=== PATIENT | female | born 1950 | race Caucasian/White ===

== ENCOUNTER 2022-03-02 23:39 | Inpatient (IN) | payer MEDICARE, OTHER ==
[~2022-03-02] VITALS: Ht 167.6 cm; Wt 81.7 kg
[2022-03-03] MEDS ORDERED: LEVSOD75 PO (00:30)
[2022-03-03 01:17] LABS: Anti-Xa UFH, PHA Monitoring 0.31 IU/mL; Prothrombin Time Results 10.5 Sec (9.7-11.5)
[2022-03-03 01:27] LABS: CHOL/HDL RATIO 3.2; Cholesterol 150 mg/dL (50-200); Free Thyroxine 1.03 ng/dL (0.70-1.60); HDL Cholesterol 47 mg/dL (>39); LDL/HDL RATIO 1.5; Low Density Lipoprotein Chol 71 mg/dL (0-110); Thyroid Stimulating Hormone 0.521 uIU/mL (0.360-4.800); Triglycerides 158 mg/dL (30-160); Very Low Density Lipoprot Chol 31 mg/dL (6-32)
--- NOTE | 2022-03-03 01:29 | NUR ---
PATIENT ARRIVED TO ROOM 301 VIA EMS FROM [facility] AT 2311. SHE IS ALERT AND ORIENTED X4. ABLE TO SELF TRANSFER AND AMBULATE WITH MINIMAL ASSISTANCE.
[2022-03-03 04:58] LABS: BASOPHILS ABSOLUTE AUTO 0.07 K/mm3 (0.00-0.23); BASOPHILS PERCENT AUTO 1 % (0-2); EOSINOPHILS ABSOLUTE AUTO 0.05 K/mm3 (0.00-0.68); EOSINOPHILS PERCENT AUTO 1 % (0-6); Hematocrit 42.8 % (33.0-51.0); Hemoglobin 13.8 g/dL (11.5-16.0); IMMATURE GRAN ABSOLUTE AUTO 0.09 K/mm3 (0.00-0.10); IMMATURE GRAN PERCENT AUTO 1 % (0-1); LYMPHOCYTES ABSOLUTE AUTO 2.33 K/mm3 (0.84-5.20); LYMPHOCYTES PERCENT AUTO 29 % (21-46); MONOCYTES ABSOLUTE AUTO 0.57 K/mm3 (0.16-1.47); MONOCYTES PERCENT AUTO 7 % (4-13); Mean Corpuscular HGB 30.2 pg (26.0-34.0); Mean Corpuscular HGB Conc 32.2 g/dL (31.5-36.5); Mean Corpuscular Volume 94 fL (80-100); Mean Platelet Volume 10.5 fL (9.1-12.4); NEUTROPHILS PERCENT AUTO 62 % (41-73); Platelet Count 250 K/mm3 (150-400); RDW Coefficient Variation 13.3 % (11.7-14.2); RDW Standard Deviation 45.7 fL (35.1-46.3); Red Blood Cell Count 4.57 M/mm3 (3.80-5.20); White Blood Cell Count 8.11 K/mm3 (4.00-11.30)
[2022-03-03 05:16] LABS: Albumin, Blood 3.1 g/dL (3.4-5.0); Albumin/Globulin Ratio 1.1 (0.8-1.8); Bilirubin, Total 0.6 mg/dL (0.1-1.0); Calcium, Blood 8.8 mg/dL (8.5-10.1); Creatinine, Blood 0.67 mg/dL (0.40-1.00); Globulin, Blood 2.8 g/dL (2.2-4.0); Total Protein, Blood 5.9 g/dL (6.4-8.2)
--- NOTE | 2022-03-03 06:42 | NUR ---
SHIFT SUMMARY PATIENT ALERT AND ORIENTED. MEDICATED PER EMAR FOR NAUSEA. NO ACUTE ISSUES NOTED OVERNIGHT. CALL LIGHT WITHIN REACH. REPORT GIVEN TO ONCOMING RN.
--- NOTE | 2022-03-03 09:43 | NUR ---
Echocardiogram completed.
[2022-03-03 13:46] LABS: Influenza A, PCR NEGATIVE (NEGATIVE); Influenza B, PCR NEGATIVE (NEGATIVE); Resp Syncytial Virus, PCR NEGATIVE (NEGATIVE); SARS-Cov-2 (COVID-19) PCR, MMC NEGATIVE (NEGATIVE)
--- NOTE | 2022-03-03 15:37 | NUR ---
1500 When pt arrived from the heart center, she was awake, denied pain, and was cheerful and pleasantly conversant. Right radial site without bleeding, swelling or pain at the time. Noted some bruising which was limited to area directly underneath the TR band around the insertion site. Distal pulses palpable and cap refill 2 seconds on the right hand fingers. Spo2 measured on the index finger of the right hand was greater than 94%. At 1500 she c/o feeling pain in the right arm; no changes to the assessment of the site otherwise. 2 cc air were removed from the TR band and the pt stated that it was feeling much better. NO bleeding, no swelling, no increase in bruising. Pt verbalized understanding at each interaction of activity restrictions on the right arm due to the radial access. She continues to be without any c/o pain or dyspnea.
--- NOTE | 2022-03-03 15:55 | NUR ---
Right wrist site is unchanged from previous assessment. Pt states that she has no chest pain/tightness and her right wrist feels fine, except that the TR band is tight.
--- NOTE | 2022-03-03 17:26 | NUR ---
SHIFT SUMMARY PATIENT A&O X4. PLEASANT AND COOPERATIVE WITH CARE. AMBULATE TO BATHROOM INDEPENDENTLY. RIGHT RADIAL SITE NO SWEELING OR BLEEDING HAS A LITTLE BIT OF BRUSING FROM THE TR BAND. DISTAL PULSES ARE PALPABLE AND CAP REFILL ABOUT 2 SECONDS. SENSATION IS INTACT, PATIENT RECIEVED 1 DOSE OF TYLENOL FOR DISCOMFORT ON HER RIGHT RADIAL SITE. RN & SN RELEASED 7ML OF AIR FROM THE BALLOON. PATIENT REPORT OF RELIEF. NO C/O OF PAIN ON RADIAL SITE. NO CP OR CHEST DISCOMFORT. PATIENT HAS BEEN RESTING IN BED AND CALLS APPROPRIATELY. BED IN LOW POSITION. CALL LIGHT IN REACH. WILL GIVE REPORT TO ONCOMING NIGHT NURSE.
--- NOTE | 2022-03-03 18:31 | NUR ---
PATIENT RIGHT RADIAL SITE UNCHANGED ASSESSMENT. TR BAND COMPLETELY DEPLATED AT 1825. PATIENT REPORT NO PAIN OR DISCOMFORT. SENSATION IS INTACT.
--- NOTE | 2022-03-03 19:49 | NUR ---
TR BAND TR BAND REMOVED AT 1930. PT DENIES PAIN, N/T. NO BLEEDING, MILD BRUISING PRESENT. AREA CLEANED AND TEGADERM PLACED OVER SITE, ARMBOARD IN PLACE.
--- NOTE | 2022-03-04 03:30 | NUR ---
SHIFT SUMMARY NO ACUTE CHANGES OVERNIGHT. PT HAS SLEPT MOST OF THE NIGHT, SHE HAS DENIED CHEST PAIN, NO SOB/NV. TR BAND REMOVED THIS SHIFT, SITE WNL. VITALS ARE STABLE. PT HAS BEEN INDEPENDENT IN THE ROOM. PLAN IS FOR DC TODAY. BED IN LOWEST POSITION, CALL LIGHT WITHIN REACH.
--- NOTE | 2022-03-04 07:16 | NUR ---
Pt is awake, alert and oriented. States that she slept very well; No reports of chest discomfort, pain or other discomfort. She is sitting on the side of the bed. States she does not have a ride back to [place] when she is discharged. Also states that she uses a mail order pharmacy, and will have to pay for any prescriptions that are given to her through any other pharmacy.
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
[2022-03-04] MEDS ORDERED: ATOR80 PO (11:13)
[2022-03-04] MEDS ORDERED: ASPI81CH PO (11:13)
[2022-03-04] MEDS ORDERED: CLOP75 PO (11:14)
[2022-03-04] MEDS ORDERED: METO25 PO (11:16)
[2022-03-04] MEDS ORDERED: NITR.4SL SL (11:19)
--- NOTE | 2022-03-04 13:16 | NUR ---
pt was given thorough discharge instructions and explanations of her medications, follow up apointments. Natalia pay taxi to transport the pt to [facility] to knot picker cloth her prescriptions, and then to her home apartment in [place]. The pt was unable to find her shoes ahd her shirt. The shirt she said was left at the ER of [facility] in [place], but she has another one to wear home. I spoke with the [employer]TEGRATOR who brought her belongings from room 301 to room U 7 yesterday, and she had not seen any shoes. Room 301 was checked again, as well as the medical floor lost and found for shoes matching the description which the pt gave. I called the ER in [place] and they also checked both ER and the Urgent care for the shoes, but they were not located. Pt was taken out to the waiting taxi in a wheelchair, and directions given to the dedicated truck driver for pharmacy and home addresses.
== END 2022-03-04 12:55 | disposition home or self-care (01) | DRG 282 ==
LOC: MEDS 23:39 → PCU 03-03 14:37
PROVIDERS: Internal Medicine; Pharmacist; Student in an Organized Health Care Education/Training Program; ADMIT Internal Medicine
PROC: 4A023N7 Measurement of Cardiac Sampling and Pressure, Left Heart, Percutaneous Approach (ICD-10-PCS; principal; 2022-03-03)
PROC: B2111ZZ Fluoroscopy of Multiple Coronary Arteries using Low Osmolar Contrast (ICD-10-PCS; 2022-03-03)
DX: I21.4 Non-ST elevation (NSTEMI) myocardial infarction (principal); I25.10 Atherosclerotic heart disease of native coronary artery without angina pectoris; Z20.822 Contact with and (suspected) exposure to COVID-19; L27.0 Generalized skin eruption due to drugs and medicaments taken internally; T36.4X5A Adverse effect of tetracyclines, initial encounter; E78.5 Hyperlipidemia, unspecified; E03.9 Hypothyroidism, unspecified; K75.89 Other specified inflammatory liver diseases; D86.9 Sarcoidosis, unspecified; K59.09 Other constipation; E78.00 Pure hypercholesterolemia, unspecified; Z98.890 Other specified postprocedural states; Z79.899 Other long term (current) drug therapy
CPT/HCPCS: 0241U; 36415; 76937; 80053; 80061; 84439; 84443; 84484; 85025; 85347; 85520; 85610; 85730; 93454; 99152; A9270; C1769; C1887; C1894; C8929; J1644; J2250; J2405; J3010; J7030; J7040; Q9957; Q9967